=== PATIENT | male | born 1975 | race Caucasian/White ===

== ENCOUNTER 2016-09-30 18:42 | Emergency (ER) | payer OTHER ==
[~2016-09-30] VITALS: Ht 182.9 cm; Wt 102.1 kg
[~2016-09-30 18:42] MED LIST: ALLOPURINOL300 MG PO; CIPRO500 MG PO; CRESTOR20 MG PO; FLAGYL500 MG PO; LEVOTHROID,SYN0.2 MG PO; NAPROSYN500 MG PO; PERCOCET 5/31 TABLET PO; PRAVASTATIN SOD40 MG PO; PREDNISONE20 MG PO; SYNTHROID200 MCG PO; TRICOR145 MG PO; TYLENOL REGULA325 MG PO; VALIUM5 MG PO
[2016-09-30 19:39] LABS: HEMATOCRIT 49.6 % (38.0-50.0); MCH 29.4 PG (29.0-34.0); MCHC 33.7 G/DL (30.0-36.0); MCV 87.3 FL (86-99); MEAN PLAT.VOLUME 10.7 uM^3 (9.0-12.4); PLATELET COUNT 207 K/uL (156-360); RBC DIS.WIDTH-CV 13.1 % (11.8-14.6); RBC DIS.WIDTH-SD 41.6 % (39-53); RED BLOOD COUNT 5.68 M/uL (4.00-5.50); WHITE BLOOD COUNT 7.5 K/uL (4.1-10.2)
[2016-09-30 19:46] LABS: CHLORIDE 105 mEq/L (99-109); POTASSIUM 3.8 mEq/L (3.7-5.4); SODIUM 139 mEq/L (136-147)
[2016-09-30 19:48] LABS: GLUCOSE 99 mg/dL (70-99)
[2016-09-30 19:50] LABS: ANION GAP 10 MEQ/L (2-14); TOTAL BILIRUBIN 0.3 mg/dL (0.0-1.0)
[2016-09-30 19:52] LABS: ALKALINE PHOSPHATASE 59 IU/L (3-129); GFR ESTIMATE (CALCULATED) 51 mL/min/
[2016-09-30 19:53] LABS: UREA NITROGEN (BUN) 15 mg/dL (9-23)
[2016-09-30 20:11] LABS: ADD MIUA? YES; BILIRUBIN NEGATIVE; BLOOD SMALL; COLOR STRAW ((YELLOW)); GLUCOSE (STRIP) NEGATIVE; KETONES NEGATIVE; LEUKOCYTES NEGATIVE; NITRITE NEGATIVE; PROTEIN (STRIP) NEGATIVE; SPECIFIC GRAVITY 1.009 (1.000-1.030); UROBILINOGEN 0.2 MG/DL (0.2-1.0)
[2016-09-30 20:17] LABS: BACTERIA NONE SEEN /HPF; EPITHELIAL CELLS NONE SEEN /HPF; MUCUS NONE SEEN /LPF; RED BLOOD CELLS 0-5 /HPF (0-5); UCUL ADDED? NO; WHITE BLOOD CELLS 0-5 /HPF (0-5)
[2016-09-30] MEDS ORDERED: NORCO 5/3251 TABLET PO (22:24)
[2016-09-30] MEDS ORDERED: NAPROSYN-EC500 MG PO (22:24)
[2016-09-30 22:42] VITALS: BP 134/83
== END 2016-09-30 22:43 | disposition home or self-care (01) ==
LOC: EME 18:42
DX: R10.31 Right lower quadrant pain (principal); R31.9 Hematuria, unspecified; Z87.442 Personal history of urinary calculi; Z87.19 Personal history of other diseases of the digestive system; E78.5 Hyperlipidemia, unspecified; Z88.6 Allergy status to analgesic agent
CPT/HCPCS: 74177; 80053; 81003; 83605; 83690; 85027; 99281; 99284; J1885; J3010; J7030